=== PATIENT | male | born 1990 | race Two or more races ===

== ENCOUNTER 2018-07-17 12:51 | Emergency (ER) | payer MEDICAID, OTHER ==
[~2018-07-17] VITALS: Ht 193 cm; Wt 88.5 kg
[~2018-07-17 12:51] MED LIST: NKM; RANITIDINE HCL150 MG ORAL; ZOFRAN ODT4 MG ORAL
--- NOTE | 2018-07-17 12:59 | NUR ---
pt in [facility]p per friend with him
--- NOTE | 2018-07-17 13:30 | NUR ---
ED Nurse Note: Patient presents to ER due to increased feeling anxious as patient unable to reach/contact with kids and family issue. Reports no SI/HI. Patient awake, alert, oriented x 4. Regular, unlabored breathing noted. Patient denies hearing voice or seeing things that were not there. Placed patient in chair.
[2018-07-17] MEDS ORDERED: LORazepam 1mg tab ORAL ONE ×2 (14:30→22:00)
[2018-07-17 14:34] VITALS: BP 133/87
--- NOTE | 2018-07-17 15:07 | NUR ---
ED Nurse Note: Patient asking for GI cocktail, stating he is having abdominal pain. No N/V or D noted. P.A. notified x 2 and aware.
[2018-07-17 15:35] LABS: EOSINOPHILS % (AUTO) 0.5 % (0.0-3.0); HEMATOCRIT 44.2 % (42.0-52.0); HEMOGLOBIN 14.2 G/DL (14.2-18.0); LYMPHOCYTES % (AUTO) 38.8 % (20.0-45.0); MEAN CORPUSCULAR VOLUME 81 FL (80-99); MONOCYTES % (AUTO) 13.8 % (1.0-10.0); NEUTROPHILS % (AUTO) 45.9 % (45.0-75.0); PLATELET COUNT 187 K/UL (150-450); RED BLOOD COUNT 5.46 M/UL (4.70-6.10); RED CELL DISTRIBUTION WIDTH 12.9 % (11.6-14.8); WHITE BLOOD COUNT 5.3 K/UL (4.8-10.8)
[2018-07-17 15:47] LABS: ANION GAP 8 mmol/L (5-15); BLOOD UREA NITROGEN 9 mg/dL (7-18); CALCIUM 9.2 MG/DL (8.5-10.1); CARBON DIOXIDE 29 MMOL/L (21-32); CHLORIDE 101 MMOL/L (98-107); POTASSIUM 3.7 MMOL/L (3.5-5.1); SODIUM 138 MMOL/L (136-145)
[2018-07-17 15:58] LABS: ALANINE AMINOTRANSFERASE 38 U/L (12-78); ALBUMIN/GLOBULIN RATIO 0.9 (1.0-2.7); ALKALINE PHOSPHATASE 41 U/L (46-116); ASPARTATE AMINO TRANSFERASE 19 U/L (15-37); BILIRUBIN,TOTAL 1.5 MG/DL (0.2-1.0)
[2018-07-17 15:59] LABS: BILIRUBIN,DIRECT 0.2 MG/DL (0.0-0.3)
--- NOTE | 2018-07-17 17:00 | NUR ---
ED Nurse Note: Patient sleeping in bed. Bed in lowest position.
--- NOTE | 2018-07-17 18:09 | Emergency Room Report ---
History of Present Illness General Chief Complaint: Behavioral Complaint Source: Patient Present Illness HPI 28-year-old male presents to the emergency department complaining of worsening of his symptoms of depression and anxiety over the course of the last few weeks. Patient reports that he had been hospitalized previously and was wrongfully being treated for schizophrenia for which he emphasizes that he does not have he states that he has bipolar he cannot recall the name of the medications that he was on that he said that they were not working for him, and the only medication that seemed to work in the past was Ativan. Denies SI or HI he denies past suicidal attempts denies history of jacqueline he does report some drug use but states it is not often, it is not problem and nothing recent. He denies medical complaints at this time other than stating that he feels that he is dehydrated and may benefit from some fluids. Denies fevers, chills, nausea, vomiting, history of traumatic brain injury, or sudden onset headaches. Pt. is requesting voluntary psych admission. He and his father report that they have been in contact with [facility] which apparently will accept him after he is medically cleared. Allergies: Coded Allergies: No Known Allergies (Unverified , 07/28/14) Patient History Past Medical History: see triage record, psych hx Past Surgical History: none Pertinent Family History: none Nursing Documentation-[facility] Past Medical History: No History, Except For History Of Psychiatric Problem: Yes - bipolar, depression Review of Systems All Other Systems: negative except mentioned in HPI Physical Exam Vital Signs Date Time Temp Pulse Resp B/P (MAP) Pulse Ox O2 Delivery O2 Flow Rate FiO2 07/17/18 13:01 97.9 102 22 146/87 99 Room Air Sp02 EP Interpretation: reviewed, normal General Appearance: no apparent distress, alert, GCS 15, non-toxic Head: normocephalic, atraumatic Eyes: bilateral eye normal inspection, bilateral eye PERRL, bilateral eye EOMI ENT: hearing grossly normal, normal voice Neck: full range of motion Respiratory: lungs clear, normal breath sounds, speaking full sentences Cardiovascular #1: regular rate, rhythm Gastrointestinal: normal bowel sounds, non tender, soft Musculoskeletal: back normal, gait/station normal, normal range of motion, non- tender Neurologic: alert, oriented x3, responsive, motor strength/tone normal, sensory intact, normal gait, speech normal, grossly normal Psychiatric: no suicidal/homicidal ideation, no delusions, other - Pt. is very talkative and has strong opinion about his medical care, has some mild paranoia/ negative thoughts and verbalizes them intermittently, mildly Volatile emotions Skin: normal color, no rash, warm/dry, well hydrated Lymphatic: no adenopathy Medical Decision Making PA Attestation Dr. luz is my supervising Physician whom patient management has been discussed with. Diagnostic Impression: Primary Impression: Medical clearance for psychiatric admission Additional Impressions: Behavioral disorder Anxiety associated with depression ER Course 28-year-old male presents to the emergency department complaining of worsening of his symptoms of depression and anxiety over the course of the last few weeks. Patient reports that he had been hospitalized previously and was wrongfully being treated for schizophrenia for which he emphasizes that he does not have he states that he has bipolar he cannot recall the name of the medications that he was on that he said that they were not working for him, and the only medication that seemed to work in the past was Ativan. Denies SI or HI he denies past suicidal attempts denies history of jacqueline he does report some drug use but states it is not often, it is not problem and nothing recent. He denies medical complaints at this time other than stating that he feels that he is dehydrated and may benefit from some fluids. Denies fevers, chills, nausea, vomiting, history of traumatic brain injury, or sudden onset headaches. Pt. is requesting voluntary psych admission. He and his father report that they have been in contact with [facility] which apparently will accept him after he is medically cleared. Pt. is very talkative and has strong opinion about his medical care, has some mild paranoia/negative thoughts and verbalizes them intermittently, mildly Volatile emotions Pt has flat affect. non-aggressive, normal though process, and normal memory. Ddx considered but are not limited to OD, SI/HI, psychosis, UTI, intoxication Vital signs: are WNL, pt. is afebrile H&PE are most consistent with behavioral/mental health issue ORDERS: -CBC, CMP: Unremarkable -UA: negative for infection/ unremarkable see results attached. -UDS: POSITIVE FOR BENZOS,OPIATES, METHAMPHETAMINE, THC, -Salicylates and Acetaminophen -WNL -Serum ETOH - No evidence of acute intoxication ED INTERVENTIONS: - 1 liter NS DISPOSITION: patient is medically cleared and awaiting psychiatric placement - pt. is voluntary. Labs Test 07/17/18 14:59 07/17/18 16:30 White Blood Count 5.3 K/UL (4.8-10.8) Red Blood Count 5.46 M/UL (4.70-6.10) Hemoglobin 14.2 G/DL (14.2-18.0) Hematocrit 44.2 % (42.0-52.0) Mean Corpuscular Volume 81 FL (80-99) Mean Corpuscular Hemoglobin 26.0 PG (27.0-31.0) Mean Corpuscular Hemoglobin Concent 32.1 G/DL (32.0-36.0) Red Cell Distribution Width 12.9 % (11.6-14.8) Platelet Count 187 K/UL (150-450) Mean Platelet Volume 8.2 FL (6.5-10.1) Neutrophils (%) (Auto) 45.9 % (45.0-75.0) Lymphocytes (%) (Auto) 38.8 % (20.0-45.0) Monocytes (%) (Auto) 13.8 % (1.0-10.0) Eosinophils (%) (Auto) 0.5 % (0.0-3.0) Basophils (%) (Auto) 1.0 % (0.0-2.0) Sodium Level 138 MMOL/L (136-145) Potassium Level 3.7 MMOL/L (3.5-5.1) Chloride Level 101 MMOL/L (98-107) Carbon Dioxide Level 29 MMOL/L (21-32) Anion Gap 8 mmol/L (5-15) Blood Urea Nitrogen 9 mg/dL (7-18) Creatinine 1.0 MG/DL (0.55-1.30) Estimat Glomerular Filtration Rate > 60 mL/min (>60) Glucose Level 79 MG/DL (74-106) Calcium Level 9.2 MG/DL (8.5-10.1) Total Bilirubin 1.5 MG/DL (0.2-1.0) Direct Bilirubin 0.2 MG/DL (0.0-0.3) Aspartate Amino Transf (AST/SGOT) 19 U/L (15-37) Alanine Aminotransferase (ALT/SGPT) 38 U/L (12-78) Alkaline Phosphatase 41 U/L (46-116) Total Protein 8.5 G/DL (6.4-8.2) Albumin 4.0 G/DL (3.4-5.0) Globulin 4.5 g/dL Albumin/Globulin Ratio 0.9 (1.0-2.7) Salicylates Level 0.4 ug/mL (2.8-20) Acetaminophen Level < 2 MCG/ML (10-30) Serum Alcohol < 3 mg/dL Urine Opiates Screen Positive (NEGATIVE) Urine Barbiturates Screen Negative (NEGATIVE) Phencyclidine (PCP) Screen Negative (NEGATIVE) Urine Amphetamines Screen Positive (NEGATIVE) Urine Benzodiazepines Screen Positive (NEGATIVE) Urine Cocaine Screen Negative (NEGATIVE) Urine Marijuana (THC) Screen Positive (NEGATIVE) Last Vital Signs Date Time Temp Pulse Resp B/P (MAP) Pulse Ox O2 Delivery O2 Flow Rate FiO2 07/17/18 14:34 97.6 112 16 133/87 94 Room Air Status: improved Disposition: HOME, SELF-CARE - To father for outpatient psychiatric follow up. Condition: Stable Referrals: [facility],REFERR (PCP) Patient Instructions: Medical Screening Exam Additional Instructions: Take medications as directed. Follow up with a Primary Care Provider in 3-5 days, even if your symptoms have resolved. --Please review list of primary care clinics, if you do not already have a primary care provider Return sooner to ED if new symptoms occur, or current symptoms become worse. Do not drink alcohol, drive, or operate heavy machinery while taking Ativan as this may cause drowsiness. - Please note that this Emergency Department Report was dictated using [employer] powder premix blender technology software, occasionally this can lead to erroneous entry secondary to interpretation by the dictation equipment. Christine Hauesr Jul 17, 2018 18:09
--- NOTE | 2018-07-17 19:10 | NUR ---
ED Nurse Note: Received Pt and report from day shift. Knowing Pt may need psy eval in the morning. Will continue care.
--- NOTE | 2018-07-17 19:20 | NUR ---
ED Nurse Note: Report given to CHRISTAL Kaur. Patient sleeping in bed. Moved patient from RME to Orth[facility].
--- NOTE | 2018-07-17 19:45 | NUR ---
ED Nurse Note: Pt's father got angry and states: My son is here for many hours, and he wasn't eating anything at all. Inform Pt's father will providfe snack food as soon.
--- NOTE | 2018-07-17 19:50 | NUR ---
ED Nurse Note: Provide snack food and juice.
--- NOTE | 2018-07-17 20:00 | NUR ---
Note parvez in EDM - 07/18/18 at 0652 by NU ER DISCHARGE NOTE: Patient is cleared to be discharged per ERMD, pt is aox4, on room air, with stable vital signs. pt was given dc and prescription instructions, pt was able to verbalize understanding, pt id band removed without complications. pt is able to ambulate with steady gait with father. pt took all belongings.
--- NOTE | 2018-07-17 20:30 | NUR ---
ED Nurse Note: Pt got very angry and ststea: I am here so long, but no one pay attention on me!! I need Dr come here talk to me!! Explain Pt ERMD is current seeing other Pt and will visit Pt later. Pt couldn't accept.
--- NOTE | 2018-07-17 21:00 | NUR ---
ED Nurse Note: Pt and his father yelling the nurses, ERMD and security and states: My son needs attention but no one seen him for hours, be careful I will annette all of you! Security and ERMD are on bedside and tried to calm Pt and father down, but Pt and father still angery and yelling.
--- NOTE | 2018-07-17 21:30 | NUR ---
ED Nurse Note: Provide Meds for Pt.
[2018-07-17] MEDS ORDERED: ATIVAN1 MG ORAL (21:53)
[2018-07-17 22:00] VITALS: BP 138/84
[2018-07-17] MEDS ORDERED: Lidocaine 2% Visc 15ml soln ORAL ONE (22:00)
--- NOTE | 2018-07-17 22:00 | NUR ---
ER DISCHARGE NOTE: Patient is cleared to be discharged per ERMD, pt is aox4, on room air, with stable vital signs. pt was given dc and prescription instructions, pt was able to verbalize understanding, pt id band and iv site removed without complications. pt is able to ambulate with steady gait. pt took all belongings.
== END 2018-07-17 22:00 | disposition home or self-care (01) ==
LOC: EMR 13:35
DX: F41.8 Other specified anxiety disorders (principal)
CPT/HCPCS: 36415; 80053; 80307; 80329; 82248; 85025; 96361; 96374; 99284